=== PATIENT | female | born 1990 | race Caucasian/White ===

== ENCOUNTER 2016-11-06 22:17 | Emergency (ER) | payer MEDICAID, OTHER ==
[2016-11-06] MEDS ORDERED: HYDROcodone/Acetaminophen 10/325 mg Tablet ONE (22:54)
[2016-11-06] MEDS ORDERED: Naproxen 500 MG TAB ONE (22:54)
--- NOTE | 2016-11-06 23:07 | RAD ---
LEFT HUMERUS TWO VIEWS 11/06/16 HISTORY: Left arm pain. FINDINGS/IMPRESSION: The left humerus is unremarkable. There are postop changes and metallic hardware in the visualized p ortions of the left clavicle. POS: [facility]
--- NOTE | 2016-11-06 23:10 | RAD ---
LEFT SHOULDER THREE VIEWS: 11/06/16 HISTORY: Left shoulder pain. FINDINGS/IMPRESSION: There are postop changes with metallic hardware in the left clavicle. No acute fracture or dislocati on is otherwise seen. POS: [facility]
== END 2016-11-06 23:50 | disposition home or self-care (01) ==
LOC: MADERS 22:17
DX: S46.012A Strain of muscle(s) and tendon(s) of the rotator cuff of left shoulder, initial encounter (principal); S43.422A Sprain of left rotator cuff capsule, initial encounter; J45.909 Unspecified asthma, uncomplicated; F17.210 Nicotine dependence, cigarettes, uncomplicated; X50.9XXA Other and unspecified overexertion or strenuous movements or postures, initial encounter

== ENCOUNTER 2017-12-20 08:36 | Outpatient (CLI) | payer MEDICAID, OTHER ==
[2017-12-20 10:47] LABS: #Basophils 0.1 thou/uL (0.0-0.2); #Eosinphils 0.2 thou/uL (0.0-0.7); #Lymphocytes 2.9 thou/uL (1.20-3.40); #Monocytes 0.7 thou/uL (0.11-0.59); #Neutrophils 9.8 thou/uL (1.40-6.50); %Basophils 0.6 % (0.0-1.0); %Eosinophils 1.1 % (0.0-10.0); %Lymphocytes 21.5 % (21.0-51.0); %Monocytes 4.7 % (0.0-10.0); %Neutrophils 72.1 % (42.0-75.0); Mean Corpuscular HGB CONC 35.3 g/dL (32.0-36.0); Mean Corpuscular Hemoglobin 33.3 pg (27.0-31.0); Mean Corpuscular Volume 94.1 fL (78.0-98.0); Mean Platelet Volume 7.4 fL (7.4-10.4); Platelet Count 275 thou/uL (130-400); RBC Distribution Width 11.8 % (11.5-14.5); Red Blood Cell (RBC) Count 3.31 mill/uL (4.20-5.40); White Blood Cell (WBC) Count 13.6 thou/uL (4.8-10.8)
[2017-12-20 17:58] LABS: Syphilis Antibody Nonreactive (Nonreactive); Syphilis Antibody Index 0.03 S/CO (<1.00 Non-Reactive)
[2017-12-20 18:15] LABS: HIV (1/2) Antibody/Antigen Non-Reactive (NonReactive); HIV 1/2 INDEX 0.12 S/CO (<1.00)
== END 2017-12-20 08:37 | disposition home or self-care (01) ==
LOC: MADLABBHPM 08:36
PROVIDERS: ATTEND Family Medicine
DX: Z34.83 Encounter for supervision of other normal pregnancy, third trimester (principal)
CPT/HCPCS: 36415; 82950; 85025; 86780; 86850; 87389

== ENCOUNTER 2020-09-27 14:32 | Emergency (ER) | payer BC ==
[2020-09-27] MEDS ORDERED: Ketorolac Tromethamine 30 MG/ML VIAL ONE (15:44)
[2020-09-28 00:20] LABS: SARS-CoV-2 PCR by NAA Not Detected (NotDetected)
== END 2020-09-27 16:00 | disposition home or self-care (01) ==
LOC: MADERS 14:32
DX: R51.9 Headache, unspecified (principal); Z20.822 Contact with and (suspected) exposure to COVID-19; F17.210 Nicotine dependence, cigarettes, uncomplicated
CPT/HCPCS: 96372; 99284; J1885; U0003; U0005

== ENCOUNTER 2021-11-19 13:24 | Emergency (ER) | payer BC, SELFPAY | END 2021-11-19 14:41 | disposition home or self-care (01) | LOC: MADERS 13:24 | DX: U07.1 COVID-19 (principal); J12.82 Pneumonia due to coronavirus disease 2019; F17.210 Nicotine dependence, cigarettes, uncomplicated | CPT/HCPCS: 99284 ==

== ENCOUNTER 2023-10-03 11:28 | Emergency (ER) | payer BC ==
[2023-10-03] MEDS ORDERED: Amoxicillin/Potassium Clav 875 MG TAB ONE (12:19)
[2023-10-03] MEDS ORDERED: Ondansetron ODT 4 MG TAB ONE (12:20)
== END 2023-10-03 12:22 | disposition home or self-care (01) ==
LOC: MADERS 11:28
DX: Z48.814 Encounter for surgical aftercare following surgery on the teeth or oral cavity (principal); F17.210 Nicotine dependence, cigarettes, uncomplicated
CPT/HCPCS: 99282; Q0162